=== PATIENT | female | born 1940 | race Caucasian/White ===

== ENCOUNTER 2024-04-14 14:58 | Emergency (ER) | payer MEDICARE, BC, SELFPAY ==
[2024-04-14 15:02] VITALS: BP 171/74
--- NOTE | 2024-04-14 15:17 | ED.GENMED ---
History of Present Illness
<Carol Lagunas MD, Resident - Last Filed: 04/14/24 20:48>
General
Chief Complaint: Extremity Pain (non-traumatic)
Source: patient and family
Time Seen by Provider: 04/14/24 15:12
History of Present Illness
History of Present Illness:
This is a 83 year old female patient with PMH of HTN, sciatica and hx of breast cancer s/o bilateral mastectomy who presents to the ED with concerns of right lower extremity pain and is accompanied by her son. She currently lives at [place]
([facility]). She states that she started to have sudden crampy continuous right leg pain that she noticed a week ago. She denies any fever, chills or nausea. She does admit that her leg pain is somewhat similar to her sciatica pain in
the past. Her son states that patient used to be very active in the past but has been 'declining'. Patient is unable to remember if her lower extremities are chronically swollen.
Review of Systems
<Carol Lagunas MD, Resident - Last Filed: 04/14/24 20:48>
Review of Systems
Constitutional: Denies fever or chills
Cardiac: Denies chest pain or palpitations
ABD/GI: Denies abdominal pain, nausea or vomiting
Musculoskeletal: Reports other (cramping right leg pain)
Phy Exam
<Carol Lagunas MD, Resident - Last Filed: 04/14/24 20:48>
General Physical Exam
General Presentation: no apparent distress
General Habitus: frail
Cardiovascular Exam
Cardiovascular Exam: regular rate/rhythm and no murmur
Heart Sounds: normal
Pulmonary Exam
Pulmonary Exam: lungs clear, no respiratory distress and no crackles
Gastrointestinal Exam
Gastrointestinal Exam: non tender, soft and non distended
Neurological Exam
Neurological Exam: oriented x3
Musculoskeletal Exam
Musculoskeletal Exam: other (mild right calf pain)
Skin Exam
Skin Exam: warm/dry
Psychiatric Exam
Psychiatric Exam: normal mood/affect
Course
<Carol Isabell Lagunas MD, Resident - Last Filed: 04/14/24 20:48>
Orders/Labs/Results
Orders:
Orders
04/14/24 16:25
US Legs, Right [US Periph Venous LOWER Ext RT] Urgent
Comment:
Reason For Exam: cramping pain
04/14/24 16:[address] Non Medication Order As Directed
Physician Order: Pharmacy med reconile
04/14/24 16:48
CBC/With Diff [Complete Blood Count/With Diff] Urgent
CMP [Comprehensive Metabolic Panel] Urgent
04/14/24 17:21
Ketorolac [Toradol] 15 mg IV NOW STA
Abnormal Lab Results
04/14/24
16:48
RBC 4.02 L 10^6/uL
(4.20-5.40)
MCHC 32.0 L g/dL
(33.0-37.0)
Absolute Lymphs (auto) 0.9 L 10^3/uL
(1.2-3.4)
Neutrophils % 76.6 H %
(42.2-75.2)
Lymphocytes % 13.3 L %
(20.5-51.1)
BUN 23 H mg/dl
(7-17)
04/14/24 16:48
04/14/24 16:48
Vital Signs
Initial and Last Documented VS:
Initial Vital Signs
Temp Pulse Resp BP Pulse Ox
98.4 F 67 18 171/74 98
04/14/24 15:02 04/14/24 15:02 04/14/24 15:02 04/14/24 15:02 04/14/24 15:02
Last Documented Vital Signs
Temp Pulse Resp BP Pulse Ox
98.4 F 83 25 153/72 92
04/14/24 15:02 04/14/24 19:36 04/14/24 18:14 04/14/24 18:14 04/14/24 19:36
<Jacinto Faustin, - Last Filed: 04/14/24 22:08>
Orders/Labs/Results
Orders:
Orders
04/14/24 16:25
US Legs, Right [US Periph Venous LOWER Ext RT] Urgent
Comment:
Reason For Exam: cramping pain
04/14/24 16:[address] Non Medication Order As Directed
Physician Order: Pharmacy med reconile
04/14/24 16:48
CBC/With Diff [Complete Blood Count/With Diff] Urgent
CMP [Comprehensive Metabolic Panel] Urgent
04/14/24 17:21
Ketorolac [Toradol] 15 mg IV NOW STA
Abnormal Lab Results
04/14/24
16:48
RBC 4.02 L 10^6/uL
(4.20-5.40)
MCHC 32.0 L g/dL
(33.0-37.0)
Absolute Lymphs (auto) 0.9 L 10^3/uL
(1.2-3.4)
Neutrophils % 76.6 H %
(42.2-75.2)
Lymphocytes % 13.3 L %
(20.5-51.1)
BUN 23 H mg/dl
(7-17)
04/14/24 16:48
04/14/24 16:48
Vital Signs
Initial and Last Documented VS:
Initial Vital Signs
Temp Pulse Resp BP Pulse Ox
98.4 F 67 18 171/74 98
04/14/24 15:02 04/14/24 15:02 04/14/24 15:02 04/14/24 15:02 04/14/24 15:02
Last Documented Vital Signs
Temp Pulse Resp BP Pulse Ox
98.4 F 83 25 153/72 92
04/14/24 15:02 04/14/24 19:36 04/14/24 18:14 04/14/24 18:14 04/14/24 19:36
<Carol Lagunas MD, Resident - Last Filed: 04/14/24 20:48>
MDM/Problems Addressed
Differential Diagnosis Includes:
Sciatica, DVT, PAD, MSK injury
MDM/Problems Addressed:
CBC/CMP ordered and without significant findings. US of LLE with no findings of DVT. Toradol given for pain control. Likely to sciatica type of pain. Patient stable to be discharged and advised to follow up with family physician for further
outpatient follow up.
<Carol Lagunas MD, Resident - Last Filed: 04/14/24 20:48>
*Critical Care Note
Total Time (30-74mins, 75-104mins- exclusive of procedures): Not Applicable
ED Attending Note
<Carol Lagunas MD, Resident - Last Filed: 04/14/24 20:48>
-
Portions of this chart may have been created with voice recognition software.� Occasional wrong word or��sound alike� substitutions may have occurred due to the inherent limitations of voice recognition software.
<Jacinto Faustin, DO - Last Filed: 04/14/24 22:08>
ED Attending Note
Patient seen and examined by attending physician: Yes
I performed a history and physical exam of patient and discussed management with resident, I reviewed resident's note and agree with documented findings and plan of care.: Yes
ED Attending Note:
81-year-old female who presents with right lower leg pain. Son states she has been declining over some time. She does not walk very well and she has some chronic deformity of the right lower extremity. Patient is reporting some pain behind her
leg. She has had sciatica in the past. Son was most concerned about a blood clot. Exam: She does have a plantar deformity of the right lower foot/ankle. She has normal perfusion of the right lower. There is some mild edema bilaterally. She
does have posterior tenderness on the right. She is awake but confused. Assessment and plan: Labs grossly unremarkable DVT scan negative. No clinical concern for arterial pathology. She does seem to be declining a bit. I do think she does need
close follow-up with does not need inpatient care at this time.
Discharge Plan
Departure
Patient Disposition: Fdc/SNF
Date of Disposition: 04/14/24
Time of Disposition: 18:40
Patient with high blood pressure during this ER visit?: Yes
Discharge Problem:
Lower extremity pain, right
Referrals:
UNKNOWN - PT DOES,NOT KNOW [Family Provider] -
Activity Restrictions/Additional Instructions:
If any symptoms such as worsening leg pain, worsening leg swelling, high grade fevers or vomiting please return to the ER. Take Tylenol as needed over the counter every 6 hours for the next 3-5 days. Please follow up with family physician in 1 week
for further outpatient work up.
[facility] ([phone])
Interventions
Interventions:
*Risk Screen - Suicide Last Done: 04/14/24 15:02
*General Assessment Last Done: 04/14/24 15:02
*Neglect/Abuse Screening Last Done: 04/14/24 15:02
ED- Fall Risk Assessment Last Done: 04/14/24 19:36
*ED COVID-19 Vaccine History Last Done: 04/14/24 15:02
*Nursing Disposition Last Done: 04/14/24 19:36
ED-Musculoskeletal Assessment Last Done: 04/14/24 16:13
Discharge Date and Time
Discharge Date/Time: 04/14/24 19:38
Print Language: VIETNAMESE
--- NOTE | 2024-04-14 16:16 | PHANOTE ---
Addendum entered by Lidia Lucas 04/14/24 17:44:
recalled longterm. no fax of medication
Original Note:
med [facility] note- called longterm at [phone] spoke to Teagan. asked her to fax patient medication list over to ed pod 1 fax.
[2024-04-14 16:58] LABS: % Basophils 0.6 % (0-2); % Eosinophils 1.4 % (0-6); % Immature Granulocytes 0.4 % (0-0.5); % Lymphocytes 13.3 % (20.5-51.1); % Monocytes 7.7 % (1.7-9.3); % Neutrophils 76.6 % (42.2-75.2); Absolute Eosinophils 0.1 10^3/uL (0-0.7); Absolute Lymphocytes 0.9 10^3/uL (1.2-3.4); Absolute Monocytes 0.5 10^3/uL (0.1-0.6); Absolute Neutrophils 5.4 10^3/uL (1.4-6.5); Hematocrit 38.7 % (37.0-47.0); Hemoglobin 12.4 g/dL (12.0-16.0); Mean Corpuscular Hgb 30.8 pg (27.0-31.0); Mean Corpuscular Volume 96.3 fL (81.0-99.0); Mean Platelet Volume 10.4 fL (7.4-10.4); Nucleated Red Blood Cells % 0 %; Platelet Count 227 10^3/uL (130-400); Red Blood Cell Count 4.02 10^6/uL (4.20-5.40); Red Cell Dist. Width 13.5 % (11.5-14.5)
[2024-04-14 17:15] LABS: ALT (SGPT) 17 U/L (0-35); AST (SGOT) 29 U/L (14-36); Albumin 4.3 g/dl (3.5-5.0); Alkaline Phosphatase 69 U/L (38-126); Blood Urea Nitrogen 23 mg/dl (7-17); Calcium 9.5 mg/dl (8.4-10.2); Carbon Dioxide 27 mmol/L (22-30); Chloride 102 mmol/L (98-107); Glucose 98 mg/dl (70-99); Potassium 4.6 mmol/L (3.5-5.1); Sodium 139 mmol/L (135-145); Total Bilirubin 0.3 mg/dl (0.2-1.3); Total Protein 7.3 g/dl (6.3-8.2); eGFR > 60.00
[2024-04-14] MEDS: TORADOL 15 MG IV (17:31)
[2024-04-14 18:14] VITALS: BP 153/72
== END 2024-04-14 19:38 ==
LOC: EMR 14:58
PROVIDERS: Student in an Organized Health Care Education/Training Program; EMERGENCY PHYSICIAN Emergency Medicine
DX: M79.661 Pain in right lower leg (principal); R60.0 Localized edema; R41.0 Disorientation, unspecified; R25.2 Cramp and spasm; I10 Essential (primary) hypertension; M54.30 Sciatica, unspecified side; Z85.3 Personal history of malignant neoplasm of breast; Z90.13 Acquired absence of bilateral breasts and nipples
CPT/HCPCS: 99284; 96374; 80053; 85025; 93971

== ENCOUNTER 2024-11-10 12:17 | Inpatient (IN) | payer MEDICARE, BC, SELFPAY ==
[2024-11-10 10:22] VITALS: BP 165/104; BMI 24.6
--- NOTE | 2024-11-10 10:44 | ED.GENMED ---
History of Present Illness
General
Chief Complaint: Cough
Source: patient, records and ambulance crew
Time Seen by Provider: 11/10/24 10:23
History of Present Illness
History of Present Illness:
84-year-old female presenting to the ER via EMS from [facility] for evaluation of a reported cough and shortness of breath over the last 3 days, today reportedly worse. Patient was unaware of any fevers despite her fever here. EMS did not
treat the patient with any medications on the way to the ER. They did note patient was hot to the touch and increased respiratory rate, at time of arrival patient's oxygen found to be around 91% on room air so placed on 2 L via nasal cannula.
Patient is not aware of any known sick contacts. She is denying any chest pain, palpitations diaphoresis, abdominal pain, nausea or vomiting, sore throat or otalgia. Cough does appear to be associated with a yellow-green sputum.
Past History
Past History
ED Past Surgical History: Gynecological, Orthopedic and Other
Social History
Tobacco: Non-smoker
Alcohol: None
Drug: None
Living: jail
Review of Systems
Review of Systems
All Other Systems: ROS reviewed and negative except as documented in HPI and ROS
Phy Exam
Physical Exam
Physical Exam:
GENERAL: Alert , in no apparent distress, Appears older than stated age, persistent wet cough noted during the exam, thin
HEAD: NCAT
EYE: clear conjunctiva
NECK: Supple
ENT: o/p clr, mmm.
CARDIAC: Borderline tachycardic rate and rhythm, systolic murmur at the left sternal border
LUNGS: Diminished lung sounds at the right base, tachypneic, no wheezing or rails
ABDOMEN: Soft, without focal tenderness, no r/g, no cvat
NEUROLOGICAL: Alert and oriented x3, seems to have some difficulty answering questions but answers most of them appropriately
SKIN: Warm and dry, skin intact.
MUSCULOSKELETAL: right lower extremity edema which patient reports is baseline for her compared to the left, well perfused.
PSYCH: Normal and appropriate interaction.
Scores
Heart Failure Risk
Heart Failure Risk Score: Not Applicable
Heart Score for Chest Pain Patients
STEMI patient?: Not applicable
Withdrawal Assessment of Alcohol
Withdrawal Assessment Completed?: Not applicable
Sepsis
Sepsis Screening
Sepsis Assessment: Sepsis
Sepsis Screen
Sepsis Screen: Sepsis
Date: 11/10/24
Time: 15:50
Course
Orders/Labs/Results
Orders:
Orders
11/10/24 Lunch
Regular
At Your Request: Full Participation
11/10/24 10:35
O2 Therapy [RESP] Urgent
Titrate/Wean O2 to maintain O2 sat greater than (%): 93
Special Instructions: TO MAINTAIN CONTINUOUS O2 SATS > OR = 93%
11/10/24 10:37
Acetaminophen [Tylenol] 650 mg PO NOW STA
11/10/24 10:43
CR Chest Portable - 1 View Urgent
Comment:
Reason For Exam: cough, hypoxia, fever
Reason Study Needs to be Portable: Unable to Transport
11/10/24 10:45
COVID-19 Antigen Urgent
Source: Nasal Swab
Complete Blood Count/With Diff Urgent
Comprehensive Metabolic Panel Urgent
Lactic Acid Q4H
Comment: ON ICE, CANCEL 2ND ORDER IF FIRST LACTIC ACID LEVEL <2
Blood Culture Q20M
KEVIN Source: Blood/Venous
Specimen Description:
Comment: Urgent from separate sites. If patient screens positive for possible sepsis
11/10/24 10:53
Cefepime HCl [Maxipime] 2,000 mg IV NOW STA
11/10/24 11:43
Blood Culture Q20M
KEVIN Source: Blood/Venous
Specimen Description:
Comment: Urgent from separate sites. If patient screens positive for possible sepsis
11/10/24 12:10
Admit/Transfer Patient As Directed
Co-Sign Provider:
Level of Care: Inpatient admission
Assign to:: Medical/Surgical
Physician / Group: jose
Diagnosis: sepsis pneumonia
Reason for Hospitalization: sepsis pneumonia
Expected length of stay greater than two midnights?: Yes
ELOS- Estimated Length of Stay in days: 2
I certify the patient meets the requirements for IP care: Yes
11/10/24 12:11
Code Status As Directed
Resuscitation Status: Full Code
PRN Pain Medication Management As Directed
May give lesser potent ordered pain med per pt: Yes
preference::
Protocol:: Medication orders for pain may be administered in a
manner that supports deferring to patient preference
when the pt is:
- Requesting an ordered lesser potent pain medication.
Least to most potent pain medications are defined
as: acetaminophen < NSAID < tramadol < opioids
(morphine, oxycodone, hydromorphone).
- Requesting a lesser dose of the same medication IF
ORDERED.
- Requesting a less intrusive route of administration
if both routes are prescribed by the provider (PO <
IV).
11/10/24 12:12
Respiratory Culture/Gram Stain Urgent
KEVIN Source: Sputum
Specimen Description:
11/10/24 13:22
0.9% Sodium Chloride 1000 ml [Nss] 1,000 ml IV 100 mls/hr
Acetaminophen [Tylenol] 650 mg PO Q4HPRN PRN
11/10/24 13:22
Activity As Directed
Activity Level: As Tolerated
Vital Signs As Directed
Frequency: Per unit guidelines
DX Deep Vein Thrombosis Video Routine
11/10/24 14:00
Azithromycin 500 mg/250 ml [Zithromax Infusion] 500 mg in 250 ml IV Q24H
11/10/24 16:00
CefTRIAXone [Rocephin] 1,000 mg IV Q24H
11/10/24 20:00
Heparin 5,000 units SC Q12
11/11/24 06:00
Complete Blood Count/With Diff IN AM
Comprehensive Metabolic Panel IN AM
Abnormal Lab Results
11/10/24
10:45
WBC 12.1 H 10^3/uL
(4.8-10.8)
RBC 3.85 L 10^6/uL
(4.20-5.40)
Hgb 11.9 L g/dL
(12.0-16.0)
Hct 36.3 L %
(37.0-47.0)
MCHC 32.8 L g/dL
(33.0-37.0)
MPV 11.0 H fL
(7.4-10.4)
Abs Immat Gran (auto) 0.1 H 10^3/uL
(0-0.05)
Absolute Neuts (auto) 10.3 H 10^3/uL
(1.4-6.5)
Absolute Lymphs (auto) 0.6 L 10^3/uL
(1.2-3.4)
Absolute Monos (auto) 1.2 H 10^3/uL
(0.1-0.6)
Neutrophils % 84.4 H %
(42.2-75.2)
Lymphocytes % 4.7 L %
(20.5-51.1)
Monocytes % 9.6 H %
(1.7-9.3)
BUN 28 H mg/dl
(7-17)
Glucose 106 H mg/dl
(70-99)
Calcium 8.3 L mg/dl
(8.4-10.2)
11/10/24 10:45
11/10/24 10:45
Vital Signs
Initial and Last Documented VS:
Initial Vital Signs
Temp Pulse Resp BP Pulse Ox
100.6 F H 95 28 165/104 91
11/10/24 10:22 11/10/24 10:22 11/10/24 10:22 11/10/24 10:22 11/10/24 10:22
Last Documented Vital Signs
Temp Pulse Resp BP Pulse Ox
98.2 F 87 20 124/63 93
11/10/24 13:34 11/10/24 13:34 11/10/24 13:34 11/10/24 13:34 11/10/24 15:00
MDM/Problems Addressed
Differential Diagnosis Includes:
- Pneumonia
- COVID
- CHF
- Asthma/COPD
- PE
- Bronchitis
- Viral syndrome
MDM/Problems Addressed:
84-year-old female presenting to the ER for evaluation of reported 3 days of worsening cough, on arrival here patient, febrile and hypoxic. Treated with 2 L via nasal cannula with improvement. Tylenol ordered for fever. Labs, COVID testing, chest
x-ray ordered. Anticipate admission
*Radiology
Radiology exam reviewed: preliminary read by ED provider (b/l upper lobe pneumonia)
*Pulse Oximetry
SaO2: 91
Oxygen Mode of Delivery: Room air
Patient hypoxic: yes
*Critical Care Note
Total Time (30-74mins, 75-104mins- exclusive of procedures): Not Applicable
Comment
Comment:
2nd blood culture drawn off patients SC port
Patient Management
Discussion with other providers: Hospitalist
Escalation/DeEscalation of care consider admission/obs:
Hospitalist team accepts the patient for continued evaluation and treatment of multifocal pneumonia.
ED Attending Note
-
Portions of this chart may have been created with voice recognition software.� Occasional wrong word or��sound alike� substitutions may have occurred due to the inherent limitations of voice recognition software.
Discharge Plan
Departure
Patient Disposition: Admit
Date of Disposition: 11/10/24
Time of Disposition: 11:44
Presentation/result/management discussed w/ accepting MD/DO: Hospitalist
Discharge Problem:
Multifocal pneumonia, Hypoxia
Interventions
Interventions:
*Risk Screen - Suicide Last Done: 11/10/24 13:34
*General Assessment Last Done: 11/10/24 10:22
*Neglect/Abuse Screening Last Done: 11/10/24 10:22
*ED- Fall Risk Assessment Last Done: 11/10/24 10:22
*ED COVID-19 Vaccine History Last Done: 11/10/24 10:30
*Nursing Disposition Last Done: 11/10/24 13:00
ED- Pulmonary Assessment Last Done: 11/10/24 13:00
Discharge Date and Time
Discharge Date/Time: 11/10/24 13:10
[2024-11-10 10:59] LABS: Hematocrit 36.3 % (37.0-47.0); Hemoglobin 11.9 g/dL (12.0-16.0); Mean Corp Hgb Conc. 32.8 g/dL (33.0-37.0); Mean Corpuscular Volume 94.3 fL (81.0-99.0); Nucleated Red Blood Cells % 0 %; Platelet Count 245 10^3/uL (130-400); Red Cell Dist. Width 14.0 % (11.5-14.5)
[2024-11-10] MEDS: TYLENOL 650 MG PO (11:07)
[2024-11-10 11:13] LABS: COVID-19 Antigen Negative (Negative)
[2024-11-10 11:29] LABS: ALT (SGPT) 19 U/L (0-35); AST (SGOT) 30 U/L (14-36); Albumin 3.6 g/dl (3.5-5.0); Alkaline Phosphatase 71 U/L (38-126); Blood Urea Nitrogen 28 mg/dl (7-17); Calcium 8.3 mg/dl (8.4-10.2); Carbon Dioxide 24 mmol/L (22-30); Chloride 106 mmol/L (98-107); Estimated Creatinine Clearance 48 ml/min; Glucose 106 mg/dl (70-99); Potassium 3.9 mmol/L (3.5-5.1); Sodium 139 mmol/L (135-145); Total Protein 6.8 g/dl (6.3-8.2); eGFR > 60.00
--- NOTE | 2024-11-10 11:45 | VATNOTE ---
pt with L non power port that has not been accessed in approx and 3-5yrs and sometimes does not have blood return, all per patient. port was accessed in ed with +br, per ordering provider in ed, aquilino SANABRIA, blood cx x1 taken from port. pt resting,
call vazquez in reach
[2024-11-10] MEDS: MAXIPIME 2000 MG IV (12:10)
--- NOTE | 2024-11-10 12:13 | HPS.HSE ---
Family Physician
-
Family Physician: Molina Niño
Chief Complaint
-
cough
History of Present Illness
84-year-old female past medical history of tuberculosis as a child, osteoporosis, anxiety/depression, prior breast cancer presenting from [facility] for productive yellow-green cough and shortness of breath over the past 3 days. Patient
unaware of any fever although febrile here. Saturating 91% on room air so placed on 2 L oxygen. No sick contacts. Denies chest pain, palpitations or sweating or abdominal pain or nausea or vomiting or sore throat.
Medical History
Past Medical History
Past Medical History: Reports Other (tuberculosis as a child, osteoporosis, anxiety/depression, prior breast cancer )
Past Surgical History: Reports None
Social History
Tobacco: Non-smoker
Alcohol: None
Drug: None
Family History
Family History: Not pertinent
Allergies / Home Medications
Allergies reflects when Allergies were last updated in [facility].
Home Medications with original date entered in [facility]
Allergy/Medication List:
Allergies
Allergy/AdvReac Type Severity Reaction Status Date / Time
barium sulfate Allergy Unknown Verified 11/10/24 11:13
aspirin AdvReac Vomiting Verified 11/10/24 11:13
codeine AdvReac Unknown Verified 11/10/24 11:13
Home Medications
alendronate 70 mg tablet (Fosamax) 70 mg PO SA 11/10/24
buspirone 15 mg tablet 15 mg PO BIDPRN PRN anxiety 11/10/24
buspirone 15 mg tablet 15 mg PO HS 11/10/24
carvedilol 3.125 mg tablet (Coreg) 3.125 mg PO BID 11/10/24
estradiol 0.01% (0.1 mg/gram) vaginal cream (Estrace) 1 appful vaginal HS 11/10/24
ibuprofen 200 mg tablet (Advil) 400 mg PO Q4HPRN PRN severe pain 11/10/24
naproxen 500 mg tablet 500 mg PO BIDPRN PRN mild pain 11/10/24
zinc oxide 20 % topical ointment 1 applic topical BID bottom/reddness 11/10/24
zinc oxide 20 % topical ointment 1 applic topical BIDPRN PRN reddness 11/10/24
Review of Systems
-
History Source: Patient
A 12 point ROS was completed and negative except as noted: Yes
Constitutional: Reports No Symptoms
EENT: Reports No Symptoms
Respiratory: Reports See HPI
Cardiac: Reports No Symptoms
Abdomen/GI: Reports No Symptoms
: Reports No Symptoms
Musculoskeletal: Reports No Symptoms
Skin: Reports No Symptoms
Neurological: Reports No Symptoms
Endocrine: Reports No Symptoms
Hematologic/Lymphatic: Reports No Symptoms
Psych: Reports No Symptoms
Physical Exam
Vital Signs
Vital Signs
Temp Pulse Resp BP Pulse Ox
100.6 F H 95 28 165/104 91
11/10/24 10:22 11/10/24 10:22 11/10/24 10:22 11/10/24 10:22 11/10/24 10:53
Physical Exam
General: Well Developed, Well Nourished and No Apparent Distress
HEENT: NormoCephalic, Moist mucous membranes and Atraumatic
Respiratory: Clear
Cardiac: S1/S2 and Regular Rhythm; No Murmur or Rub
GI: Soft, Non Tender, Non Distended and Normal Bowel Sounds; No Organomegaly
Rectal: Deferred by Provider
Musculoskeletal: No Clubbing, No Cyanosis and No Edema
Skin: No Rash
Neuro: Nonfocal/grossly intact
Laboratory Results
-
11/10/24 10:45
11/10/24 10:45
Laboratory Results
Lactic Acid 1.1 mmol/L (0.7-2.0) 11/10/24 10:45
Total Bilirubin 0.9 mg/dl (0.2-1.3) 11/10/24 10:45
AST 30 U/L (14-36) 11/10/24 10:45
ALT 19 U/L (0-35) 11/10/24 10:45
Alkaline Phosphatase 71 U/L (38-126) 11/10/24 10:45
Data Reviewed
-
Lab Data: Labs Reviewed by me
Old Records: Reviewed
Impression/Plan
-
IMPRESSION:
PLAN:
# Sepsis (fever, leukocytosis) secondary to community-acquired pneumonia
-2 L oxygen
-Chest x-ray shows bilateral upper lobe opacities concerning for multifocal pneumonia, underlying malignancy not excluded and recommending follow-up imaging
- COVID-negative
-IV fluids
- Blood cultures pending
-Sputum culture
- Ceftriaxone/azithromycin
Osteoporosis
- Continue alendronate
Anxiety/depression
- Continue buspirone
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
History of breast cancer
Full code
DVT prophylaxis�heparin
Regular diet
[2024-11-10 13:34] VITALS: BP 124/63
[2024-11-10 13:36] VITALS: BMI 24.6
[2024-11-10] MEDS: NSS 1000 IV (14:43)
[2024-11-10] MEDS: ZITHROMAX INFUSION 250 IV (14:45)
[2024-11-10 14:56] VITALS: BMI 24.6
--- NOTE | 2024-11-10 15:04 | PTCARENOTE ---
Rec'd pt from ER. transferred to bed. Denies pain upon arrival. wounds as charted. Pt's son at the bedside assisting with admission questions. Per son's request dietary consult placed. NSS started at 100ml/hr. oriented pt and son to the room. call
vazquez in reach.
[2024-11-10] MEDS: STERILE WATER FOR INJECTION 10 ML IV (17:26)
[2024-11-10] MEDS: ROCEPHIN 1000 MG IV (17:26)
[2024-11-10] MEDS: MUCINEX 1200 MG PO (21:31)
[2024-11-10] MEDS: HEPARIN 5000 UNITS SC (21:32)
[2024-11-10] MEDS: BUSPAR 15 MG PO (21:32)
[2024-11-10] MEDS: COREG 3.125 MG PO (21:34)
[2024-11-10] MEDS: DESYREL 12.5 MG PO (22:25)
[2024-11-10 22:47] VITALS: BP 120/60
[2024-11-11] MEDS: NSS 1000 IV ×2 (01:05→10:50)
[2024-11-11 05:20] LABS: Hematocrit 31.1 % (37.0-47.0); Hemoglobin 10.2 g/dL (12.0-16.0); Mean Corp Hgb Conc. 32.8 g/dL (33.0-37.0); Mean Corpuscular Volume 94.0 fL (81.0-99.0); Nucleated Red Blood Cells % 0 %; Platelet Count 230 10^3/uL (130-400); Red Cell Dist. Width 14.2 % (11.5-14.5)
[2024-11-11 05:49] LABS: ALT (SGPT) 18 U/L (0-35); AST (SGOT) 26 U/L (14-36); Albumin 3.0 g/dl (3.5-5.0); Alkaline Phosphatase 57 U/L (38-126); Blood Urea Nitrogen 23 mg/dl (7-17); Calcium 7.6 mg/dl (8.4-10.2); Carbon Dioxide 24 mmol/L (22-30); Chloride 110 mmol/L (98-107); Estimated Creatinine Clearance 56 ml/min; Glucose 97 mg/dl (70-99); Potassium 3.7 mmol/L (3.5-5.1); Sodium 141 mmol/L (135-145); Total Protein 5.8 g/dl (6.3-8.2); eGFR > 60.00
--- NOTE | 2024-11-11 06:28 | W.PN.HOSP.TC ---
Today's Communication/Plan
-
cont abx
check ECHO Tuesday
ST/PT/OT eval
mucinex, prn Tessalon, Incentive spirometer Acapella
wean O2 supplementation as tolerated
Assessment / Plan
Assessment / Plan
Physical Exam
General: no acute distress, appears relatively comfortable at this time
HEENT: NormoCephalic, Moist mucous membranes and Atraumatic, Nasal Cannula oxygen supplementation 2L
Respiratory: Clear
Cardiac: S1/S2 regular rate rhythm systolic murmur 07/19
GI: Soft, Non Tender, Non Distended and Normal Bowel Sounds
Musculoskeletal: No Clubbing, No Cyanosis and No Edema, RLE calf appears bigger than LLE calf, no calf tenderness
Skin: No Rash
Neuro: AOx3 though mentation seems slow, conversant coherent
84F Osteoporosis Anxiety/Depression hx Breast Ca from [facility] here with Sepsis (leukocytosis fever) PNA.
# Sepsis (fever, leukocytosis) secondary to community-acquired pneumonia
-2 L oxygen, wean as tolerated
-Chest x-ray shows bilateral upper lobe opacities concerning for multifocal pneumonia, underlying malignancy not excluded and recommending follow-up imaging
- COVID-negative
-IV fluids completed, patient tolerating diet
-pureed diet for now, follow up speech eval
-PT/OT eval
- Blood cultures NGTD
-Sputum culture pending
- Ceftriaxone/azithromycin (azithromycin 500 mg planned for 3 days then stop)
-Incentive Spirometer Acapella Mucinex prn Tessalon
#Systolic Heart Murmur new per patient and patient's son Antoni (deny ever being told patient has heart murmur)
Check ECHO
BNP 1769
daily weights I/O
hold off on diuresis for now
#Calf asymmetry
son reports from hx knee replacement
venous duplex neg for DVT
Osteoporosis
- Continue alendronate
Anxiety/depression
- Continue buspirone
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
History of breast cancer
Full code
DVT prophylaxis�heparin
Discussed with patient and patient's son Antoni
I spent a total of 50 minutes with the patient or on the floor. More than 50% of this time involved counseling and coordination of care.
Anticipated Discharge: 24 - 48 hours
Subjective/Interval History
-
Date of Service: November 11, 2024
Seen and examined at bedside in no acute distress, resting comfortably in bed, remains on oxygen supplementation. AOx3 conversant coherent. Reports general malaise and cough
Objective Data
-
Labs:
Laboratory Results
11/11/24
05:12
WBC 10.1
Hgb 10.2 L
Hct 31.1 L
Plt Count 230
Sodium 141
Potassium 3.7
Chloride 110 H
Carbon Dioxide 24
BUN 23 H
Creatinine 0.5 L
Glucose 97
Calcium 7.6 L
Total Bilirubin 0.6
AST 26
ALT 18
Alkaline Phosphatase 57
Vital Signs:
Vital Signs
Temp Pulse Resp BP Pulse Ox
99.4 F 82 16 120/60 95
11/10/24 22:47 11/10/24 22:47 11/10/24 22:47 11/10/24 22:47 11/10/24 22:47
I&O
11/09/24 11/10/24 11/11/24
06:59 06:59 06:59
Intake Total 490 / 490
Balance 490 / 490
[2024-11-11 07:44] VITALS: BP 120/55
[2024-11-11] MEDS: COREG 3.125 MG PO ×2 (08:25→20:09)
[2024-11-11] MEDS: HEPARIN 5000 UNITS SC ×2 (08:25→20:09)
[2024-11-11] MEDS: MUCINEX 1200 MG PO ×2 (08:25→20:08)
[2024-11-11] MEDS: ZITHROMAX INFUSION 250 IV (14:33)
[2024-11-11] MEDS: TESSALON PERLES 200 MG PO (14:33)
[2024-11-11 15:35] VITALS: BP 136/68
[2024-11-11] MEDS: STERILE WATER FOR INJECTION 10 ML IV (15:55)
[2024-11-11] MEDS: ROCEPHIN 1000 MG IV (15:55)
[2024-11-11] MEDS: DESYREL 12.5 MG PO (22:02)
[2024-11-11] MEDS: BUSPAR 15 MG PO (22:03)
[2024-11-11 23:25] VITALS: BP 114/62
[2024-11-12] MEDS: TESSALON PERLES 200 MG PO ×2 (02:35→21:17)
[2024-11-12] MEDS: MOTRIN 400 MG PO (02:35)
[2024-11-12 06:00] VITALS: BMI 24.0
[2024-11-12 06:26] LABS: Hematocrit 31.0 % (37.0-47.0); Hemoglobin 10.0 g/dL (12.0-16.0); Mean Corp Hgb Conc. 32.3 g/dL (33.0-37.0); Mean Corpuscular Volume 95.1 fL (81.0-99.0); Platelet Count 259 10^3/uL (130-400); Red Cell Dist. Width 14.4 % (11.5-14.5)
[2024-11-12 07:01] LABS: Blood Urea Nitrogen 14 mg/dl (7-17); Calcium 7.9 mg/dl (8.4-10.2); Carbon Dioxide 24 mmol/L (22-30); Chloride 111 mmol/L (98-107); Estimated Creatinine Clearance 56 ml/min; Glucose 92 mg/dl (70-99); Magnesium 2.1 mg/dl (1.6-2.3); Potassium 3.5 mmol/L (3.5-5.1); Sodium 141 mmol/L (135-145); eGFR > 60.00
[2024-11-12 07:30] VITALS: BP 140/60
[2024-11-12] MEDS: MUCINEX 1200 MG PO ×2 (07:43→20:02)
[2024-11-12] MEDS: COREG 3.125 MG PO ×2 (07:43→20:02)
[2024-11-12] MEDS: HEPARIN 5000 UNITS SC ×2 (07:43→20:02)
--- NOTE | 2024-11-12 09:47 | PTOTSP ---
Dysphagia Evaluation
No signs of dysphagia or aspiration observed during clinical bedside swallowing evaluation. Patient reported occasional coughing with thin liquids prior to admission but no prior pneumonias. Video swallow study recommended to objectively assess
swallow function. Patient declined.
Recommend:
1. IDDSI 7 Regular, Thin
2. Medications as best tolerated
3. General aspiration precautions
4. Oral care 3x daily
Will sign off at this time. Please reconsult as appropriate.
[2024-11-12] MEDS: POTASSIUM PHOSPHATE 259.0909 MEQ IV (10:45)
[2024-11-12 11:47] VITALS: BP 129/65; PULSE 66; O2SAT 97
[2024-11-12 12:35] VITALS: BP 129/65; PULSE 72; O2SAT 97
--- NOTE | 2024-11-12 13:25 | W.PN.HOSP.TC ---
Today's Communication/Plan
-
Monitor vital signs see plan
Wean oxygen as tolerated
No agreeable for echo
Replete Phos
Continue with antibiotics
Discussed with son over the phone
Assessment / Plan
Assessment / Plan
Physical Exam
General: no acute distress, appears relatively comfortable at this time
HEENT: NormoCephalic, Moist mucous membranes and Atraumatic, Nasal Cannula oxygen supplementation 2L
Respiratory: Clear
Cardiac: S1/S2 regular rate rhythm systolic murmur /
GI: Soft, Non Tender, Non Distended and Normal Bowel Sounds
Musculoskeletal: No calf tenderness, no edema
Neuro: AOx3 though mentation seems slow, conversant coherent
84F Osteoporosis Anxiety/Depression hx Breast Ca from [facility] here with Sepsis (leukocytosis fever) PNA.
# Sepsis (fever, leukocytosis) secondary to community-acquired pneumonia
-2 L oxygen, wean as tolerated
-Chest x-ray shows bilateral upper lobe opacities concerning for multifocal pneumonia, underlying malignancy not excluded and recommending follow-up imaging
- COVID-negative
- Seen by speech, advance diet to regular. Speech also recommended VSE however patient declined
-PT/OT eval
- Blood cultures NGTD
-Sputum culture pending
- Ceftriaxone/azithromycin (azithromycin 500 mg planned for 3 days then stop)
-Incentive Spirometer Acapella Mucinex prn Tessalon
#Systolic Heart Murmur new per patient and patient's son Antoni (deny ever being told patient has heart murmur)
Check ECHO, initially patient refused however now agreeable
BNP 0
daily weights I/O
hold off on diuresis for now
Hypophosphatemia
Replete
#Calf asymmetry
son reports from hx knee replacement
venous duplex neg for DVT
Hypophosphatemia
Replete
Osteoporosis
- Continue alendronate
Anxiety/depression
- Continue buspirone
Added low-dose trazodone
Chronic amatory dysfunction
History of remote knee replacement
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
History of breast cancer
Full code
DVT prophylaxis�heparin
Anticipated Discharge: 24 - 48 hours
Subjective/Interval History
-
Date of Service: November 12, 2024
denies pain
Objective Data
-
Labs:
Laboratory Results
11/12/24
06:06
WBC 8.3
Hgb 10.0 L
Hct 31.0 L
Plt Count 259
Sodium 141
Potassium 3.5
Chloride 111 H
Carbon Dioxide 24
BUN 14
Creatinine 0.6
Glucose 92
Calcium 7.9 L
Vital Signs:
Vital Signs
Temp Pulse Resp BP Pulse Ox
97.9 F 68 16 140/60 97
11/12/24 07:30 11/12/24 07:43 11/12/24 07:30 11/12/24 07:43 11/12/24 07:30
I&O
11/11/24 11/12/24 11/13/24
06:59 06:59 06:59
Intake Total 490 / 490 480 / 480
Balance 490 / 490 480 / 480
[2024-11-12] MEDS: ZITHROMAX INFUSION 250 IV (14:22)
[2024-11-12 15:30] VITALS: BP 155/73
[2024-11-12] MEDS: STERILE WATER FOR INJECTION 10 ML IV (16:15)
[2024-11-12] MEDS: ROCEPHIN 1000 MG IV (16:15)
--- NOTE | 2024-11-12 16:37 | CM ---
manager talent management reviewed patient's chart and met with patient was admitted from the [facility], where patient has lived for a year, per patient's son, patient requires assist with adl's and uses w/c. per patient's son plan is for patient to
return to [facility] when stable, patient is currently on 2 liters of oxygen.
PCP: Dr. Niño
Pharmacy: [facility].
[2024-11-12 20:01] VITALS: BP 145/86
[2024-11-12] MEDS: BUSPAR 15 MG PO (21:13)
[2024-11-12] MEDS: DESYREL 12.5 MG PO (21:13)
[2024-11-12 23:00] VITALS: BP 139/68
[2024-11-13] MEDS: TYLENOL 650 MG PO (01:13)
[2024-11-13 02:45] VITALS: BP 167/77
[2024-11-13] MEDS: MOTRIN 400 MG PO (04:44)
[2024-11-13] MEDS: BUSPAR 15 MG PO ×2 (04:44→21:43)
[2024-11-13 04:47] VITALS: BMI 24.7
[2024-11-13 06:20] LABS: Hematocrit 33.7 % (37.0-47.0); Hemoglobin 10.9 g/dL (12.0-16.0); Mean Corp Hgb Conc. 32.3 g/dL (33.0-37.0); Mean Corpuscular Volume 95.2 fL (81.0-99.0); Platelet Count 314 10^3/uL (130-400); Red Cell Dist. Width 14.5 % (11.5-14.5)
[2024-11-13 06:47] LABS: Blood Urea Nitrogen 9 mg/dl (7-17); Calcium 7.8 mg/dl (8.4-10.2); Carbon Dioxide 27 mmol/L (22-30); Chloride 110 mmol/L (98-107); Estimated Creatinine Clearance 56 ml/min; Glucose 120 mg/dl (70-99); Magnesium 2.1 mg/dl (1.6-2.3); Potassium 3.7 mmol/L (3.5-5.1); Sodium 143 mmol/L (135-145); eGFR > 60.00
[2024-11-13 07:05] VITALS: BP 120/53
[2024-11-13] MEDS: COREG 3.125 MG PO ×2 (07:14→19:48)
[2024-11-13] MEDS: MUCINEX 1200 MG PO ×2 (07:14→19:48)
[2024-11-13] MEDS: HEPARIN 5000 UNITS SC ×2 (07:15→19:49)
[2024-11-13] MEDS: POTASSIUM PHOSPHATE 259.0909 MEQ IV (09:09)
--- NOTE | 2024-11-13 12:16 | W.PN.HOSP.TC ---
Today's Communication/Plan
-
Monitor vitals
See plan
Continue antibiotics
Replete Phos
Wean oxygen as tolerated
Assessment / Plan
Assessment / Plan
Physical Exam
General: no acute distress, appears relatively comfortable at this time
HEENT: NormoCephalic, Moist mucous membranes and Atraumatic, Nasal Cannula oxygen supplementation 2L
Respiratory: Clear
Cardiac: S1/S2 regular rate rhythm systolic murmur 3/6
GI: Soft, Non Tender, Non Distended and Normal Bowel Sounds
Musculoskeletal: No calf tenderness, no edema
Neuro: AOx3 though mentation seems slow, conversant coherent
84F Osteoporosis Anxiety/Depression hx Breast Ca from [facility] here with Sepsis (leukocytosis fever) PNA.
# Sepsis (fever, leukocytosis) secondary to community-acquired pneumonia
-2 L oxygen, wean as tolerated
-Chest x-ray shows bilateral upper lobe opacities concerning for multifocal pneumonia, underlying malignancy not excluded and recommending follow-up imaging
- COVID-negative
- Seen by speech, advance diet to regular. Speech also recommended VSE however patient declined
-PT/OT eval
- Blood cultures NGTD
-Sputum culture with usual respiratory rubio
- Ceftriaxone/azithromycin (azithromycin 500 mg planned for 3 days then stop)
-Incentive Spirometer Acapella Mucinex prn Tessalon
#Systolic Heart Murmur new per patient and patient's son Antoni (deny ever being told patient has heart murmur)
echo with mod
BNP 0
daily weights I/O
hold off on diuresis for now
Hypophosphatemia
Replete
#Calf asymmetry
son reports from hx knee replacement
venous duplex neg for DVT
Hypophosphatemia
Replete
Osteoporosis
- Continue alendronate
Anxiety/depression
- Continue buspirone
Added low-dose trazodone
Chronic amatory dysfunction
History of remote knee replacement
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
History of breast cancer
Full code
DVT prophylaxis�heparin
Anticipated Discharge: 24 - 48 hours
Subjective/Interval History
-
Date of Service: November 13, 2024
denies pain
Objective Data
-
Labs:
Laboratory Results
11/13/24
05:59
WBC 7.9
Hgb 10.9 L
Hct 33.7 L
Plt Count 314 D
Sodium 143
Potassium 3.7
Chloride 110 H
Carbon Dioxide 27
BUN 9
Creatinine 0.5 L
Glucose 120 H
Calcium 7.8 L
Vital Signs:
Vital Signs
Temp Pulse Resp BP Pulse Ox
97.7 F 58 14 120/53 98
11/13/24 07:05 11/13/24 07:14 11/13/24 07:05 11/13/24 07:14 11/13/24 07:05
I&O
11/12/24 11/13/24 11/14/24
06:59 06:59 06:59
Intake Total 480 / 480 240 / 240
Balance 480 / 480 240 / 240
[2024-11-13 14:45] VITALS: BP 167/77
[2024-11-13] MEDS: ROCEPHIN 1000 MG IV (15:11)
[2024-11-13] MEDS: STERILE WATER FOR INJECTION 10 ML IV (15:11)
--- NOTE | 2024-11-13 15:47 | CM ---
medical claims manager reviewed patient's chart and reached out to Randy Connor at [facility] at [place], [phone] and per [facility] patient did not require oxygen at [facility] and also that patient is able to feed self, per nursing patient is requiring
assisted with feeding and this is not independent with feeding. Physical therapy are recommending skilled placement will reach out to patient's son to review skilled options.
Plan; To follow up with skilled placement for patient.
[2024-11-13 19:46] VITALS: BP 177/90
[2024-11-13] MEDS: DESYREL 12.5 MG PO (21:43)
[2024-11-13] MEDS: TESSALON PERLES 200 MG PO (21:45)
[2024-11-13 23:42] VITALS: BP 164/94
[2024-11-14] MEDS: TYLENOL 650 MG PO (02:01)
[2024-11-14 05:00] LABS: Hematocrit 33.0 % (37.0-47.0); Hemoglobin 10.8 g/dL (12.0-16.0); Mean Corp Hgb Conc. 32.7 g/dL (33.0-37.0); Mean Corpuscular Volume 94.3 fL (81.0-99.0); Platelet Count 360 10^3/uL (130-400); Red Cell Dist. Width 14.5 % (11.5-14.5)
[2024-11-14 05:20] LABS: Blood Urea Nitrogen 6 mg/dl (7-17); Calcium 8.1 mg/dl (8.4-10.2); Carbon Dioxide 29 mmol/L (22-30); Chloride 104 mmol/L (98-107); Estimated Creatinine Clearance 56 ml/min; Glucose 115 mg/dl (70-99); Magnesium 1.9 mg/dl (1.6-2.3); Potassium 4.2 mmol/L (3.5-5.1); Sodium 139 mmol/L (135-145); eGFR > 60.00
[2024-11-14 06:00] VITALS: BMI 24.2
[2024-11-14 08:00] VITALS: BP 169/104; BP 181/93
[2024-11-14] MEDS: COREG 3.125 MG PO ×2 (08:02→20:52)
[2024-11-14] MEDS: HEPARIN 5000 UNITS SC ×2 (08:03→20:59)
[2024-11-14] MEDS: MUCINEX 1200 MG PO ×2 (08:03→20:53)
[2024-11-14 09:44] VITALS: BP 141/71; PULSE 68; O2SAT 98
--- NOTE | 2024-11-14 13:05 | W.PN.HOSP.TC ---
Today's Communication/Plan
-
Monitor vital signs see plan
Start amlodipine
Continue antibiotics
Discharge planning, needs SNF
Assessment / Plan
Assessment / Plan
Physical Exam
General: no acute distress, appears relatively comfortable at this time
HEENT: NormoCephalic, Moist mucous membranes and Atraumatic, Nasal Cannula oxygen supplementation 2L
Respiratory: Clear
Cardiac: S1/S2 regular rate rhythm systolic murmur 3/6
GI: Soft, Non Tender, Non Distended and Normal Bowel Sounds
Musculoskeletal: No calf tenderness, no edema
Neuro: AOx3 though mentation seems slow, conversant coherent
84F Osteoporosis Anxiety/Depression hx Breast Ca from [facility] here with Sepsis (leukocytosis fever) PNA.
# Sepsis (fever, leukocytosis) secondary to community-acquired pneumonia
-2 L oxygen, wean as tolerated
-Chest x-ray shows bilateral upper lobe opacities concerning for multifocal pneumonia, underlying malignancy not excluded and recommending follow-up imaging
- COVID-negative
- Seen by speech, advance diet to regular. Speech also recommended VSE however patient declined
-PT/OT eval
- Blood cultures NGTD
-Sputum culture with usual respiratory rubio
- Ceftriaxone/azithromycin (azithromycin 500 mg planned for 3 days then stop). now on CFTX
-Incentive Spirometer Acapella Mucinex prn Tessalon
#Systolic Heart Murmur new per patient and patient's son Antoni (deny ever being told patient has heart murmur)
echo with mod
BNP 1770
daily weights I/O
hold off on diuresis for now
Hypophosphatemia
Replete
#Calf asymmetry
son reports from hx knee replacement
venous duplex neg for DVT
Hypophosphatemia
Replete
HTN
on coreg
start amlodipine
Osteoporosis
- Continue alendronate
Anxiety/depression
- Continue buspirone
Added low-dose trazodone
Chronic amatory dysfunction
History of remote knee replacement
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
History of breast cancer
Full code
DVT prophylaxis�heparin
Anticipated Discharge: 24 - 48 hours
Subjective/Interval History
-
Date of Service: November 14, 2024
denies pain
Objective Data
-
Labs:
Laboratory Results
11/14/24
04:13
WBC 10.3
Hgb 10.8 L
Hct 33.0 L
Plt Count 360
Sodium 139
Potassium 4.2
Chloride 104
Carbon Dioxide 29
BUN 6 L
Creatinine 0.5 L
Glucose 115 H
Calcium 8.1 L
Vital Signs:
Vital Signs
Temp Pulse Resp BP Pulse Ox
98.1 F 86 20 169/104 94
11/14/24 08:00 11/14/24 08:02 11/14/24 08:00 11/14/24 08:02 11/14/24 08:00
I&O
11/13/24 11/14/24 11/15/24
06:59 06:59 06:59
Intake Total 240 / 240 240 / 240
Balance 240 / 240 240 / 240
--- NOTE | 2024-11-14 13:56 | CM ---
Chart reviewed and physical therapy are recommending skilled placement, onsite case manager provided patient with the list of Medicare.gov chcf facilities along with ratings and asked patient to review options, onsite case manager met with patient
today and she is unsure of skilled placement, onsite case manager reached out to patient's son, Antoni and he stated that he wants his mother to make the decision on skilled placement.
Plan; Physical therapy are recommending skilled placement, daughter and son to make a decision on skilled placement.
[2024-11-14 16:00] VITALS: BP 150/81
[2024-11-14] MEDS: NORVASC 2.5 MG PO (17:26)
[2024-11-14] MEDS: STERILE WATER FOR INJECTION 10 ML IV (17:26)
[2024-11-14] MEDS: ROCEPHIN 1000 MG IV (17:27)
[2024-11-14] MEDS: DESYREL 12.5 MG PO (23:30)
[2024-11-14] MEDS: BUSPAR 15 MG PO (23:31)
[2024-11-14 23:38] VITALS: BP 141/97
[2024-11-15 05:11] LABS: Hematocrit 33.3 % (37.0-47.0); Hemoglobin 11.0 g/dL (12.0-16.0); Mean Corp Hgb Conc. 33.0 g/dL (33.0-37.0); Mean Corpuscular Volume 93.0 fL (81.0-99.0); Platelet Count 371 10^3/uL (130-400); Red Cell Dist. Width 14.0 % (11.5-14.5)
[2024-11-15 05:37] LABS: Blood Urea Nitrogen 13 mg/dl (7-17); Calcium 8.8 mg/dl (8.4-10.2); Carbon Dioxide 31 mmol/L (22-30); Chloride 105 mmol/L (98-107); Estimated Creatinine Clearance 56 ml/min; Glucose 107 mg/dl (70-99); Magnesium 2.0 mg/dl (1.6-2.3); Potassium 4.2 mmol/L (3.5-5.1); Sodium 139 mmol/L (135-145); eGFR > 60.00
[2024-11-15 06:00] VITALS: BMI 24.1
[2024-11-15 07:56] VITALS: BP 149/76
[2024-11-15] MEDS: NORVASC 2.5 MG PO (08:10)
[2024-11-15] MEDS: MUCINEX 1200 MG PO ×2 (08:10→19:48)
[2024-11-15] MEDS: HEPARIN 5000 UNITS SC ×2 (08:11→19:49)
[2024-11-15] MEDS: COREG 3.125 MG PO ×2 (08:12→19:49)
--- NOTE | 2024-11-15 12:56 | CM ---
Addendum entered by Aga Kern 11/15/24 15:47:
[facility] call main number [phone] and ask for nursing home energy consultant supervisor.
[facility]
Report [phone]

Addendum entered by Aga Kern 11/15/24 15:40:
Patient has been accepted at [facility] skilled and bed is available tomorrow, 11/16/24, showcase maker reached out to patient's son, Antoni and made him aware and he is agreeable to skilled placement at [facility].
IMM discussed with patient's son by phone and copy provided to patient.
Original Note:
mobile marketing manager reviewed patient's chart and spoke with patient's son, and patient, patient's son insists on patient making her own decision on rehab, options reviewed with patient and list of Medicare.gov options with ratings provided to patient
several times but it is unclear if patient is reliable. mobile marketing manager spoke with patient again today regarding skilled options and she has selected [facility] showcase maker reached out to patient's son and unformed him of patient's decision.
Plan; Referral sent to [facility] for skilled placement will wait on a determination and bed from [facility].
--- NOTE | 2024-11-15 13:42 | W.PN.HOSP.TC ---
Today's Communication/Plan
-
Monitor vital signs see plan
Continue with antibiotic
Discharge planning
increase amlodipine to 5 mg
Now agreeable for SNF
Discussed with son
Assessment / Plan
Assessment / Plan
Physical Exam
General: no acute distress, appears relatively comfortable at this time
HEENT: NormoCephalic, Moist mucous membranes and Atraumatic, Nasal Cannula oxygen supplementation 2L
Respiratory: Clear
Cardiac: S1/S2 regular rate rhythm systolic murmur /
GI: Soft, Non Tender, Non Distended and Normal Bowel Sounds
Musculoskeletal: No calf tenderness, no edema
Neuro: AOx3 though mentation seems slow, conversant coherent
84F Osteoporosis Anxiety/Depression hx Breast Ca from [facility] here with Sepsis (leukocytosis fever) PNA.
# Sepsis (fever, leukocytosis) secondary to community-acquired pneumonia
-2 L oxygen, wean as tolerated
-Chest x-ray shows bilateral upper lobe opacities concerning for multifocal pneumonia, underlying malignancy not excluded and recommending follow-up imaging
- COVID-negative
- Seen by speech, advance diet to regular. Speech also recommended VSE however patient declined
-PT/OT eval recommended SNF, patient previously was hesitant however now agreeable.
- Blood cultures NGTD
-Sputum culture with usual respiratory rubio
- Ceftriaxone/azithromycin (azithromycin 500 mg planned for 3 days then stop). now on CFTX
-Incentive Spirometer Acapella Mucinex prn Tessalon
#Systolic Heart Murmur new per patient and patient's son Antoni (deny ever being told patient has heart murmur)
echo with mod
BNP 1769
daily weights I/O
hold off on diuresis for now
Hypophosphatemia
Replete
#Calf asymmetry
son reports from hx knee replacement
venous duplex neg for DVT
Hypophosphatemia
Replete
HTN
on coreg
start amlodipine, increase to 5 mg daily
Osteoporosis
- Continue alendronate
Anxiety/depression
- Continue buspirone
Added low-dose trazodone
Chronic amatory dysfunction
History of remote knee replacement
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
History of breast cancer
Full code
DVT prophylaxis�heparin
PT recommended SNF, pending placement
Anticipated Discharge: Within 24 hours
Subjective/Interval History
-
Date of Service: November 15, 2024
denies pain
Objective Data
-
Labs:
Laboratory Results
11/15/24
05:04
WBC 8.4
Hgb 11.0 L
Hct 33.3 L
Plt Count 371
Sodium 139
Potassium 4.2
Chloride 105
Carbon Dioxide 31 H
BUN 13
Creatinine 0.5 L
Glucose 107 H
Calcium 8.8
Vital Signs:
Vital Signs
Temp Pulse Resp BP Pulse Ox
97.9 F 82 18 149/76 96
11/15/24 07:56 11/15/24 08:10 11/15/24 07:56 11/15/24 08:10 11/15/24 07:56
I&O
11/14/24 11/15/24 11/16/24
06:59 06:59 06:59
Intake Total 240 / 240 700 / 700
Balance 240 / 240 700 / 700
[2024-11-15] MEDS: ROCEPHIN 1000 MG IV (15:16)
[2024-11-15] MEDS: STERILE WATER FOR INJECTION 10 ML IV (15:17)
[2024-11-15 15:19] VITALS: BP 163/82
[2024-11-15] MEDS: DESYREL 12.5 MG PO (21:37)
[2024-11-15] MEDS: BUSPAR 15 MG PO (21:37)
[2024-11-15 23:37] VITALS: BP 130/60
[2024-11-16 05:32] LABS: Blood Urea Nitrogen 14 mg/dl (7-17); Calcium 9.0 mg/dl (8.4-10.2); Carbon Dioxide 29 mmol/L (22-30); Chloride 101 mmol/L (98-107); Estimated Creatinine Clearance 56 ml/min; Glucose 109 mg/dl (70-99); Magnesium 2.0 mg/dl (1.6-2.3); Potassium 4.4 mmol/L (3.5-5.1); Sodium 137 mmol/L (135-145); eGFR > 60.00
[2024-11-16 05:41] LABS: Hematocrit 35.4 % (37.0-47.0); Hemoglobin 11.6 g/dL (12.0-16.0); Mean Corp Hgb Conc. 32.8 g/dL (33.0-37.0); Mean Corpuscular Volume 93.2 fL (81.0-99.0); Platelet Count 404 10^3/uL (130-400); Red Cell Dist. Width 14.2 % (11.5-14.5)
[2024-11-16 06:00] VITALS: BMI 22.2
[2024-11-16 07:58] VITALS: BP 115/62
[2024-11-16] MEDS: HEPARIN 5000 UNITS SC (08:21)
[2024-11-16] MEDS: NORVASC 5 MG PO (08:21)
[2024-11-16] MEDS: COREG 3.125 MG PO (08:22)
[2024-11-16] MEDS: MUCINEX 1200 MG PO (08:22)
--- NOTE | 2024-11-16 10:20 | W.PN.HOSP.TC ---
Addendum entered and electronically signed by Yvon Mondragon MD 11/16/24 12:22:
Time of discharge 38 minutes
Addendum entered and electronically signed by Yvon Mondragon MD 11/16/24 10:25:
Acute hypoxic respiratory insufficiency secondary to pneumonia initially, now resolved. On room air
Original Note:
Today's Communication/Plan
-
Monitor vital signs see plan
Discharge today if has placement, dependency case manager notified
Switch to p.o. cefdinir for 1 more day
Continue amlodipine, Coreg
Discussed with son
Assessment / Plan
Assessment / Plan
Physical Exam
General: no acute distress, appears relatively comfortable at this time
HEENT: NormoCephalic, Moist mucous membranes and Atraumatic, Nasal Cannula oxygen supplementation 2L
Respiratory: Clear
Cardiac: S1/S2 regular rate rhythm systolic murmur 3/6
GI: Soft, Non Tender, Non Distended and Normal Bowel Sounds
Musculoskeletal: No calf tenderness, no edema
Neuro: AOx3 though mentation seems slow, conversant coherent
84F Osteoporosis Anxiety/Depression hx Breast Ca from [facility] here with Sepsis (leukocytosis fever) PNA.
# Sepsis (fever, leukocytosis) secondary to community-acquired pneumonia
-2 L oxygen, wean as tolerated
-Chest x-ray shows bilateral upper lobe opacities concerning for multifocal pneumonia, underlying malignancy not excluded and recommending follow-up imaging
- COVID-negative
- Seen by speech, advance diet to regular. Speech also recommended VSE however patient declined
-PT/OT eval recommended SNF, patient previously was hesitant however now agreeable.
- Blood cultures NGTD
-Sputum culture with usual respiratory rubio
- Ceftriaxone/azithromycin (azithromycin 500 mg planned for 3 days then stop). now on CFTX, switch to cefdinir for 1 day
-Incentive Spirometer Acapella Mucinex prn Tessalon
#Systolic Heart Murmur new per patient and patient's son Antoni (deny ever being told patient has heart murmur)
echo with mod ; this was discussed with patient and her son; no sob
BNP 1770
daily weights I/O
hold off on diuresis for now
Hypophosphatemia
Replete
#Calf asymmetry
son reports from hx knee replacement
venous duplex neg for DVT
Hypophosphatemia
Replete
HTN
on coreg
start amlodipine, decrease back to 2.5 mg daily. Blood pressure much improved now
Osteoporosis
- Continue alendronate
Anxiety/depression
- Continue buspirone
Added low-dose trazodone
Chronic amatory dysfunction
History of remote knee replacement
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
History of breast cancer
Full code
DVT prophylaxis�heparin
PT recommended SNF, pending placement
Anticipated Discharge: Today
Subjective/Interval History
-
Date of Service: November 16, 2024
Denies pain
Objective Data
-
Labs:
Laboratory Results
11/16/24
04:44
WBC 7.9
Hgb 11.6 L
Hct 35.4 L
Plt Count 404 H
Sodium 137
Potassium 4.4
Chloride 101
Carbon Dioxide 29
BUN 14
Creatinine 0.6
Glucose 109 H
Calcium 9.0
Vital Signs:
Vital Signs
Temp Pulse Resp BP Pulse Ox
97.5 F 70 17 115/62 96
11/16/24 07:58 11/16/24 07:58 11/16/24 07:58 11/16/24 08:21 11/16/24 07:58
I&O
11/15/24 11/16/24 11/17/24
06:59 06:59 06:59
Intake Total 700 / 700 540 / 540
Balance 700 / 700 540 / 540
--- NOTE | 2024-11-16 11:05 | CM ---
Addendum entered by Mounika Zarate 11/16/24 13:15:
Updated son Antoni, updated pt.
Goal: transfer to [facility].
Addendum entered by Mounika Zarate 11/16/24 12:25:
Call back from Susi, nursing shrink pit supervisor, states pt is able to come today and bed available.
[facility] arranging transport.
Original Note:
CM following re: d/c planning.
Call placed to [facility] [phone], requested to speak with nursing shrink pit supervisor.
Nursing shrink pit supervisor away from desk right now and RN will call CM back to confirm plan for transfer today.
Awaiting confirmation, then will proceed with arranging transport.
Report [phone]

Goal: [facility], pending confirmation of bed today.
--- NOTE | 2024-11-16 12:22 | W.DCSUMMARY ---
Discharge Summary
Discharge Data
Date of Admission: 11/10/24
Date of Discharge: 11/16/24
-
Pending Results: No
Hospital Course
83-year-old female with past medical history of osteoporosis, anxiety, depression, history of breast cancer, hypertension, chronic ambulatory dysfunction, history of TB came to the hospital with sepsis secondary to community-acquired pneumonia.
Patient initially required oxygen which was later weaned off. Speech therapy recommended video swallow study however patient refused. Patient initially was put on IV antibiotics which was later transitioned to p.o. antibiotics prior to discharge.
Patient was also seen by physical therapy with recommended SNF. Patient also had systolic heart murmur and got echocardiogram which showed preserved EF however did show moderate aortic stenosis. This was discussed with patient and her son. She
was instructed to follow-up with cardiology outpatient. Over time patient symptoms continue to improve and she was then discharged to SNF with instructions to follow-up with all her physicians outpatient.
Discharge Plan
-
Patient Disposition: Care Home/SNF
Discharge Diagnosis/Procedures: Sepsis secondary to community-acquired pneumonia
Moderate aortic stenosis
Hypophosphatemia
Hypertension
Diet: Regular
Activity: With assistance and As tolerated
Driving Restrictions: Not until seen by your Dr
Activity Restrictions/Additional Instructions:
Continue with cefdinir 300 mg twice daily for tomorrow 11/17/24
Referrals:
Aries Espino MD [Active, Cardiology]
Molina Niño MD [Family Provider, Family Practice] - in less than 1 week
Prescriptions:
New
acetaminophen 325 mg Tablet
650 mg PO Q4HPRN PRN (Reason: mild pain/MORAN/temp> 100.4F) Qty: 0 0RF
amlodipine 2.5 mg Tablet
2.5 mg PO DAILY Qty: 0 0RF
benzonatate 100 mg Capsule
200 mg PO TIDPRN PRN (Reason: cough) Qty: 0 0RF
guaifenesin 600 mg Tablet Extended Release 12hr
1,200 mg PO Q12 Qty: 0 0RF
trazodone 50 mg Tablet
12.5 mg PO HS Qty: 0 0RF
cefdinir 300 mg capsule
300 mg PO BID Qty: 2 0RF
Continued
alendronate [Fosamax] 70 mg Tablet
70 mg PO SA
zinc oxide 20 % Ointment
1 applic TOPICAL BIDPRN PRN (Reason: reddness)
zinc oxide 20 % Ointment
1 applic TOPICAL BID
carvedilol [Coreg] 3.125 mg Tablet
3.125 mg PO BID
ibuprofen [Advil] 200 mg Tablet
400 mg PO Q4HPRN PRN (Reason: severe pain)
estradiol [Estrace] 0.01 % (0.1 mg/gram) Cream
1 appful VAGINAL HS
naproxen 500 mg Tablet
500 mg PO BIDPRN PRN (Reason: mild pain)
buspirone 15 mg Tablet
15 mg PO BIDPRN PRN (Reason: anxiety)
buspirone 15 mg Tablet
15 mg PO HS
Discharge Orders:
Discharge Patient (As Directed); Ordered 11/16/24
Ordered By: Yvon Mondragon
Discharge Date and Time
Discharge Date/Time: 11/16/24 14:07
Print Language: SWEDISH
[2024-11-16 13:17] VITALS: BP 125/71
== END 2024-11-16 14:07 | DRG 871 ==
LOC: 4 WEST ACU 12:17
PROVIDERS: Internal Medicine; Physician Assistant Medical; ADMITTING PHYSICIAN Hospitalist; ATTENDING PHYSICIAN Internal Medicine; EMERGENCY PHYSICIAN Student in an Organized Health Care Education/Training Program; FAMILY PHYSICIAN Family Medicine
DX: A41.9 Sepsis, unspecified organism (principal); J18.9 Pneumonia, unspecified organism; M81.0 Age-related osteoporosis without current pathological fracture; F32.A Depression, unspecified; F41.9 Anxiety disorder, unspecified; I10 Essential (primary) hypertension; I08.0 Rheumatic disorders of both mitral and aortic valves; E83.39 Other disorders of phosphorus metabolism; R09.02 Hypoxemia; R06.89 Other abnormalities of breathing; Z11.52 Encounter for screening for COVID-19; Z79.83 Long term (current) use of bisphosphonates; Z79.899 Other long term (current) drug therapy; Z85.3 Personal history of malignant neoplasm of breast; Z86.11 Personal history of tuberculosis
CPT/HCPCS: 71045; 80048; 80053; 83605; 83735; 83880; 84100; 85025; 85027; 87040; 87070; 87205; 87811; 92610; 93005; 93306; 93970; 96374; 97163; 97167; 97530; 99285

== ENCOUNTER → 2024-11-20 11:59 | Outpatient (REF) | payer MEDICARE, BC, SELFPAY ==
[2024-11-20 12:50] LABS: Hematocrit 35.3 % (37.0-47.0); Hemoglobin 11.6 g/dL (12.0-16.0); Mean Corp Hgb Conc. 32.9 g/dL (33.0-37.0); Mean Corpuscular Volume 93.6 fL (81.0-99.0); Nucleated Red Blood Cells % 0 %; Platelet Count 435 10^3/uL (130-400); Red Cell Dist. Width 14.2 % (11.5-14.5)
[2024-11-20 12:57] LABS: Blood Urea Nitrogen 22 mg/dl (7-17); Calcium 8.6 mg/dl (8.4-10.2); Carbon Dioxide 25 mmol/L (22-30); Chloride 106 mmol/L (98-107); Glucose 99 mg/dl (70-99); Potassium 5.0 mmol/L (3.5-5.1); Sodium 137 mmol/L (135-145); eGFR > 60.00
== END ==
LOC: OLABP 11:59
PROVIDERS: ATTENDING PHYSICIAN Family Medicine
DX: A41.9 Sepsis, unspecified organism (principal); J18.9 Pneumonia, unspecified organism; R09.02 Hypoxemia; I35.0 Nonrheumatic aortic (valve) stenosis; F41.9 Anxiety disorder, unspecified; M81.0 Age-related osteoporosis without current pathological fracture; E83.30 Disorder of phosphorus metabolism, unspecified
CPT/HCPCS: 36415; 80048; 85025

== ENCOUNTER → 2024-11-28 09:38 | Outpatient (REF) | payer OTHER, MEDICARE, BC, SELFPAY ==
[2024-11-28 13:12] LABS: Blood Urea Nitrogen 16 mg/dl (7-17); Calcium 9.0 mg/dl (8.4-10.2); Carbon Dioxide 25 mmol/L (22-30); Chloride 108 mmol/L (98-107); Glucose 83 mg/dl (70-99); Potassium 4.4 mmol/L (3.5-5.1); Sodium 137 mmol/L (135-145); eGFR > 60.00
== END ==
LOC: OLABP 09:38
PROVIDERS: ATTENDING PHYSICIAN Family Medicine
DX: A41.9 Sepsis, unspecified organism (principal); J18.9 Pneumonia, unspecified organism; R09.02 Hypoxemia; I35.0 Nonrheumatic aortic (valve) stenosis; I10 Essential (primary) hypertension; F41.9 Anxiety disorder, unspecified; F32.0 Major depressive disorder, single episode, mild; M81.0 Age-related osteoporosis without current pathological fracture; Z85.3 Personal history of malignant neoplasm of breast; Z86.11 Personal history of tuberculosis; E83.30 Disorder of phosphorus metabolism, unspecified
CPT/HCPCS: 36415; 80048